=== PATIENT | male | born 1995 | race Caucasian/White ===

== ENCOUNTER 2018-05-05 07:39 | Outpatient (CLI) | payer MEDICARE, MEDICAID, SELFPAY ==
[2018-05-05 08:28] LABS: Abs Immature Grans 0.01 k/cumm (0.0-0.09); Absolute Basophil Count 0.03 k/cumm (0.0-0.2); Absolute Eosinophil Count 0.21 k/cumm (0.0-0.7); Absolute Lymphocyte Count 1.46 k/cumm (1.2-3.4); Absolute Monocyte Count 0.54 k/cumm (0.11-0.7); Basophils % 0.5; Eosinophils % 3.4; HGB 16.3 g/dL (13.5-17.5); Immature Grans % 0.2; Lymphocytes % 23.7; Mean Corp. HGB Concentration 33.3 g/dL (32.0-36.0); Mean Corpuscular Hemoglobin 30.4 pg (27.0-33.0); Mean Corpuscular Volume 91.4 fL (80-95); Mean Platelet Volume 11.1 fL (8.0-11.0); Monocytes % 8.8; Neutrophils % 63.4; Platelet Count 171 x1000/uL (130-400); RBC 5.36 m/cumm (4.50-6.00); RBC Distribution Width 13.9 % (11.8-14.1); White Blood Cell Count 6.15 k/cumm (4.4-10.8)
[2018-05-05 08:40] LABS: Hemoglobin A1C 5.1 % (4.5-6.2)
[2018-05-05 08:59] LABS: Lithium 0.83 mmol/L (0.60-1.20)
[2018-05-05 09:11] LABS: ALT 46 U/L (12-78); AST 23 U/L (15-37); Albumin 4.2 g/dL (3.4-5.0); Alkaline Phosphatase 67 U/L (46-116); Anion Gap 7.3 mmol/L (3-11); BUN 12 mg/dL (7-18); Bilirubin, Total 0.7 mg/dL (0.2-1.0); CO2 27.7 mmol/L (21.0-32.0); CREATININE 1.22 mg/dL (0.70-1.30); Calcium 9.5 mg/dL (8.5-10.1); Chloride 105 mmol/L (98-107); Cholesterol 145 mg/dL (50-200); Glucose 96 mg/dL (70-100); HDL Cholesterol 32 mg/dL (40-60); LDL CHOLESTEROL 88 mg/dL (<100); Potassium 4.3 mmol/L (3.5-5.1); Sodium 140 mmol/L (136-145); TSH 0.67 uIU/mL (0.358-3.74); Total Protein 6.9 g/dL (6.4-8.2); Triglyceride 188 mg/dL (30-150)
== END 2018-05-05 07:59 ==
PROVIDERS: PCP Specialist/Technologist Athletic Trainer; Visit Provider Nurse Practitioner Psychiatric/Mental Health
DX: F31.76 Bipolar disorder, in full remission, most recent episode depressed (principal); Z51.81 Encounter for therapeutic drug level monitoring; Z79.899 Other long term (current) drug therapy
CPT/HCPCS: 80053; 80061; 83721; 80178; 83036; 84443; 85025

== ENCOUNTER 2018-08-19 10:19 | Outpatient (CLI) | payer MEDICARE, MEDICAID, SELFPAY ==
[2018-08-19 11:53] LABS: ALT 51 U/L (12-78); AST 27 U/L (15-37); Albumin 4.2 g/dL (3.4-5.0); Alkaline Phosphatase 69 U/L (46-116); Anion Gap 10.2 mmol/L (3-11); BUN 15 mg/dL (7-18); Bilirubin, Total 0.4 mg/dL (0.2-1.0); CO2 23.8 mmol/L (21.0-32.0); CREATININE 0.99 mg/dL (0.70-1.30); Calcium 9.6 mg/dL (8.5-10.1); Chloride 103 mmol/L (98-107); Glucose 92 mg/dL (70-100); Potassium 3.8 mmol/L (3.5-5.1); Sodium 137 mmol/L (136-145); Total Protein 7.2 g/dL (6.4-8.2)
[2018-08-19 13:00] LABS: Lithium 0.47 mmol/L (0.60-1.20)
== END 2018-08-19 10:39 ==
PROVIDERS: PCP Specialist/Technologist Athletic Trainer; Visit Provider Nurse Practitioner Psychiatric/Mental Health
DX: F31.76 Bipolar disorder, in full remission, most recent episode depressed (principal); Z51.81 Encounter for therapeutic drug level monitoring; Z79.899 Other long term (current) drug therapy
CPT/HCPCS: 36415; 80053; 80178

== ENCOUNTER 2018-11-03 13:09 | Outpatient (REF) | payer MEDICARE, MEDICAID, SELFPAY | END 2018-11-03 13:29 | LOC: NCHCN 13:09 | PROVIDERS: PCP Specialist/Technologist Athletic Trainer; Visit Provider Nurse Practitioner Family | DX: R09.81 Nasal congestion (principal); R05 Cough; J02.9 Acute pharyngitis, unspecified | CPT/HCPCS: 87070 ==

== ENCOUNTER 2018-11-04 10:36 | Outpatient (CLI) | payer MEDICARE, MEDICAID, SELFPAY | END 2018-11-04 10:56 | PROVIDERS: PCP Specialist/Technologist Athletic Trainer; Visit Provider Nurse Practitioner Psychiatric/Mental Health | DX: F31.76 Bipolar disorder, in full remission, most recent episode depressed (principal); Z51.81 Encounter for therapeutic drug level monitoring | CPT/HCPCS: 36415; 80178 ==

== ENCOUNTER 2019-03-06 09:29 | Outpatient (CLI) | payer MEDICARE, MEDICAID, SELFPAY ==
[2019-03-06 11:38] LABS: ALT 37 U/L (16-63); AST 22 U/L (15-37); Alkaline Phosphatase 66 U/L (46-116); Anion Gap 13.2 mmol/L (3-11); BUN 15 mg/dL (7-18); Bilirubin, Total 0.6 mg/dL (0.2-1.0); CO2 22.8 mmol/L (21.0-32.0); CREATININE 1.07 mg/dL (0.70-1.30); Calcium 9.3 mg/dL (8.5-10.1); Chloride 105 mmol/L (98-107); Glucose 94 mg/dL (70-100); Potassium 4.4 mmol/L (3.5-5.1); Sodium 141 mmol/L (136-145)
[2019-03-06 11:39] LABS: Lithium 0.42 mmol/L (0.60-1.20)
== END 2019-03-06 09:49 ==
PROVIDERS: PCP Specialist/Technologist Athletic Trainer; Visit Provider Nurse Practitioner Psychiatric/Mental Health
DX: F31.76 Bipolar disorder, in full remission, most recent episode depressed (principal); Z51.81 Encounter for therapeutic drug level monitoring; Z79.899 Other long term (current) drug therapy
CPT/HCPCS: 36415; 80053; 80178

== ENCOUNTER 2019-04-22 13:58 | Outpatient (REF) | payer MEDICARE, MEDICAID, SELFPAY ==
[2019-04-22 18:35] LABS: Calculated LDL 74 mg/dL; Cholesterol 144 mg/dL (<200); HDL Cholesterol 33 mg/dL (40-60); Triglyceride 185 mg/dL (<150)
== END 2019-04-22 14:18 ==
LOC: NCHCN 13:58
PROVIDERS: PCP Specialist/Technologist Athletic Trainer; Visit Provider Specialist/Technologist Athletic Trainer
DX: F17.200 Nicotine dependence, unspecified, uncomplicated (principal); E66.9 Obesity, unspecified
CPT/HCPCS: 80061

== ENCOUNTER 2019-07-30 01:18 | Emergency (ER) | payer MEDICARE, MEDICAID, SELFPAY ==
[2019-07-30 01:18] VITALS: BP 135/83; PULSE 98; RESP 16; TEMP 36.5; O2SAT 94
--- NOTE | 2019-07-30 01:25 | ED.GENADUL_ITS ---
Discharge Plan Disposition Patient Disposition: HOME Condition: Stable Discharge Details Chief Complaint: Orthopedic Clinical Impression: Left knee sprain Primary Care Provider: Bryon Simon ED Provider: Robbie Becerra Home Meds and New Rx's Prescriptions: Continued lithium carbonate 450 MG tablet extended release 300 mg PO HS RF: 0 lithium carbonate 450 MG tablet extended release 900 mg PO QAM RF: 0 Fanapt 4 MG tablet 10 mg PO BID RF: 0 trazodone 50 MG tablet 100 mg PO HS RF: 0 melatonin 3 MG tablet 3 mg PO HS PRN PRNRF: 0 Discharge Instructions Instructions: Knee Sprain (ED) Additional Instructions: if pain continues in one week follow up with your primary care provider if you have pain take 1000mg tylenol and 600mg ibuprofen every 6 hours as needed Medical Decision Making 24 yo male who states he has history of prior patella dislocations was dancing when he felt a pop in his left knee and called 911. He was given IM fentanyl with EMS and now feels better. Localizes the pain to the anterior knee with no visible or palpable deformity, no swelling, patella does seem in place and has normal distal sensation and pulses. Suspect knee sprain but could have had a patella dislocation that self reduced. Will xray to eval for possible fx but unlikely given exam findings no acute findings on xray. Stable exam. Will d/c with crutches and knee brace and advised to f/u with pcp, likely knee sprain. return precautions given Differential Diagnosis Differential Diagnosis: patella dislocation, strian, sprain Medical Records Medical records reviewed: Yes I reviewed the patient's medical records. Imaging Data Radiologic Study: Attestation: I personally reviewed and interpreted this imaging study as follows: Imaging: X-Ray My impression: no acute findings HPI General Mode of arrival: EMS . Date/Time Provider Initiated Documentation: 07/30/19 01:23 . Limitations to Documentation: no limitations . Information obtained by: patient . History of Present Illness 24 year old M presents to the emergency department with the chief complaint of left knee pain, described as moderate, Patient started experiencing this hour(s) (1) and it has been constant. No relieving factors improve symptom(s), No exacerbating factors reported . Patient notes no other symptoms.. Related Data Home Medications Medication Instructions Recorded Confirmed lithium carbonate 300 mg PO HS 09/09/12 07/30/19 Fanapt 10 mg PO BID 01/28/13 07/30/19 lithium carbonate 900 mg PO QAM 01/28/13 10/24/16 trazodone 100 mg PO HS 11/22/15 07/30/19 melatonin 3 mg PO HS PRN PRN 12/09/15 07/30/19 Allergies Allergy/AdvReac Type Severity Reaction Status Date / Time No Known Allergies Allergy Unverified 12/22/16 13:17 General Stated Complaint: Orthopedic DARRYL: 4 Review of Systems All systems reviewed & are unremarkable except as noted in HPI and below Constitutional Constitutional: Denies chills, Denies fever(s) and Denies weakness Cardiovascular Cardiovascular: Denies chest pain and Denies dyspnea Respiratory Respiratory: Denies cough and Denies dyspnea Gastrointestinal Gastrointestinal: Denies abdominal pain, Denies nausea and Denies vomiting Musculoskeletal Musculoskeletal: Denies joint swelling Neurologic Neurologic: Denies weakness PFSH Social History Smoking/Tobacco Use Status: Current every day Tobacco Type: cigarettes Alcohol Intake: current Alcohol Intake frequency: a few times a week Alcohol type: beer Drug use: Occasionally Substance use type: marijuana Do you feel safe at home: Yes Do you feel safe in your relationship?: Yes Exam Const General: no acute distress Orientation: alert HENMT Head: normal to inspection Ears: external ears normal General nose exam: external nose normal Mouth: moist mucous membranes Eyes General: appearance normal, both eyes and all related structures Neck Neck: normal visual inspection Resp Effort & Inspection: normal respiratory effort and able to speak in complete sentences Cardio Rate: regular rate Skin General skin exam: no rashes or lesions noted Neuro General: alert and oriented x3 Extrem General: normal to inspection Psych Mental Status: mental status grossly normal Course Vital Signs Vital signs: Vital Signs Temperature 36.5 C 07/30/19 01:18 Pulse 98 H 07/30/19 01:18 Respiratory Rate 16 07/30/19 01:18 Blood Pressure 135/83 07/30/19 01:18 Pulse Oximetry 94 L 07/30/19 01:18 Temperature 36.5 C 07/30/19 01:18 Temperature Source Skin 07/30/19 01:18 Pulse 98 H 07/30/19 01:18 Respiratory Rate 16 07/30/19 01:18 Blood Pressure 135/83 07/30/19 01:18 Blood Pressure Position Sitting 07/30/19 01:18 Pulse Oximetry 94 L 07/30/19 01:18 Oxygen Delivery Method Room Air 07/30/19 01:18 Oxygen Flow Rate 0 07/30/19 01:18 Pain Level 5 07/30/19 01:18
--- NOTE | 2019-07-30 01:33 | DI.RAD_ITS ---
EXAM: XR KNEE LT 3V AP,LAT,RADHA CLINICAL HISTORY: pain s/p fall. TECHNIQUE: 2D digital imaging was performed. FINDINGS: BONES: No acute fracture is present. No bony destructive lesion is seen. JOINTS: The knee is normally aligned. No joint effusion is seen. SOFT TISSUE: Normal. IMPRESSION: Normal radiographs of the left knee. DATA REPOSITORY: RADIATION DOSE DELIVERED:
--- NOTE | 2019-07-30 01:52 | DI.VRAD_ITS ---
PROCEDURE INFORMATION: Exam: XR Left Knee Exam date and time: 07/30/2019 1:34 AM Age: 24 years old Clinical indication: Injury or trauma; Injury history: Twisting injury, ? dislocation; Initial encounter; Sprain or strain; Patella or knee; Left TECHNIQUE: Imaging protocol: XR Left knee. Views: 3 views. COMPARISON: No relevant prior studies available. FINDINGS: Bones/joints: No suspicious osseous lytic or blastic lesion. No discrete or displaced fracture. No joint dislocation. No significant joint effusion. Soft tissues: Normal. IMPRESSION: No acute findings. Dictated and Authenticated by: Tono Pearce MD. Ordering:MEGAN Avalos MD
== END 2019-07-30 02:30 | disposition home or self-care (01) ==
LOC: ER 02:39
PROVIDERS: Emergency Provider Emergency Medicine; PCP Specialist/Technologist Athletic Trainer
DX: S83.8X2A Sprain of other specified parts of left knee, initial encounter (principal); X50.9XXA Other and unspecified overexertion or strenuous movements or postures, initial encounter
CPT/HCPCS: 73562; 99284; 99283; E0114; L1810

== ENCOUNTER 2019-11-25 12:04 | Emergency (ER) | payer MEDICARE, MEDICAID, SELFPAY ==
[2019-11-25] VITALS (31 sets, daily range): BP systolic 109–132; BP diastolic 67–107; PULSE 58–95; RESP 14–25; TEMP 36.8; O2SAT 93–97
--- NOTE | 2019-11-25 12:20 | ED.GENADUL_ITS ---
Discharge Plan Disposition Patient Disposition: HOME Condition: Improving Discharge Details Chief Complaint: RespSymp Clinical Impression: Acute bronchitis Primary Care Provider: Nathaly Pace ED Provider: Tom Beavers Home Meds and New Rx's Prescriptions: New doxycycline hyclate 100 mg capsule 100 mg PO BID 10 Days Qty: 20 RF: 0 Continued lithium carbonate 450 MG tablet extended release 300 mg PO HS RF: 0 Fanapt 4 MG tablet 10 mg PO BID RF: 0 trazodone 50 MG tablet 100 mg PO HS RF: 0 melatonin 3 MG tablet 3 mg PO HS PRN RF: 0 Discharge Instructions Instructions: Acute Bronchitis (ED) Additional Instructions: Your yu/COVID test is pending. Please continue your vigilance regarding wearing a mask and social distancing. Take antibiotics as prescribed. Home to rest today. Continue your regular medications Return for any acute concerns. Stand Alone Forms: PENDING COVID-19 TESTING Medical Decision Making 24-year-old male presents from home with 1 day of cough, subjective fever, production of sputum, general malaise. He had a low-grade temperature on route, afebrile on arrival. Differential diagnosis includes viral syndrome, bronchitis, pneumonia. Patient underwent COVID-19 screening which is pending, screening laboratories, chest x- ray and was given Tylenol and parenteral fluids. Pulse corrected nicely to 60, patient felt significantly improved. Chest x-ray was unremarkable. Laboratories reassuring. He does have productive cough and I will treat him for bronchitis while COVID test is pending. HPI General Mode of arrival: EMS . Date/Time Provider Initiated Documentation: 11/25/19 12:13 . Limitations to Documentation: no limitations . Information obtained by: patient and EMS . History of Present Illness 24 year old M presents to the emergency department with the chief complaint of Cough and subjective fever x24 hours, described as moderate, Quality is described as dull and constant, and is localized to the chest. Patient reports no radiation. Patient started experiencing this hour(s) and it has been constant. No relieving factors improve symptom(s), No exacerbating factors reported . Patient notes malaise; denies shortness of breath. Patient did receive the following treatments prior to arrival, none Related Data Home Medications Medication Instructions Recorded Confirmed lithium carbonate 300 mg PO HS 09/09/12 11/25/19 Fanapt 10 mg PO BID 01/28/13 11/25/19 trazodone 100 mg PO HS 11/22/15 11/25/19 melatonin 3 mg PO HS PRN 12/09/15 11/25/19 doxycycline hyclate 100 mg PO BID 10 Days #20 cap 11/25/19 Previous Rx's Medication Instructions Recorded doxycycline hyclate 100 mg PO BID 10 Days #20 cap 11/25/19 Allergies Allergy/AdvReac Type Severity Reaction Status Date / Time No Known Allergies Allergy Unverified 11/25/19 12:22 General Stated Complaint: RespSymp DARRYL: 2 Review of Systems Narrative: Cough with production of sputum. No change to taste or smell. No shortness of breath. Feels malaise and weakness. No known sick contacts or travel. 8 systems reviewed and otherwise negative COUNTS INCLUDE 234 BEDS AT THE [facility] Social History Smoking/Tobacco Use Status: Current every day Tobacco Type: cigarettes Alcohol Intake: current Alcohol Intake frequency: a few times a week Alcohol type: beer Drug use: Occasionally Substance use type: marijuana Do you feel safe at home: Yes Do you feel safe in your relationship?: Yes Exam Narrative Exam Narrative: GEN: awake, alert, oriented 3. Pleasant, well groomed, interactive. HEAD: Normocephalic, atraumatic ENT: Mucous membranes moist, oropharynx unremarkable, External ear exam unremarkable EYES: PERRL, EOMI NECK: Full ROM, no JULIANE, no menigismus CHEST/RESP: Nontender, clear to auscultation bilateral, right upper lung with rhonchi anterior CARDIOVASCULAR: Borderline tachycardia, RRR, no murmur, rub ayaz. 2+ Rad pulse bilateral ABDOMEN: Soft, nontender, no mass. +Bowel sounds EXT: Full ROM, no edema, no rash Neuro: Grossly normal neurologic exam, conversant, interactive. Psych: Speech fluent, thoughts congruent, affect normal Course Vital Signs Vital signs: Vital Signs Temperature 36.8 C 11/25/19 12:06 Pulse 83 11/25/19 12:06 Respiratory Rate 19 11/25/19 12:06 Blood Pressure 131/107 H 11/25/19 12:06 Pulse Oximetry 94 L 11/25/19 12:06 Temperature 36.8 C 11/25/19 12:06 Temperature Source Skin 11/25/19 12:06 Pulse 83 11/25/19 12:06 Respiratory Rate 19 11/25/19 12:06 Respiratory Effort Incrsd Work of Breathing 11/25/19 12:14 Respiratory Depth Normal 11/25/19 12:12 Blood Pressure 131/107 H 11/25/19 12:06 Blood Pressure Position Sitting 11/25/19 12:06 Pulse Oximetry 94 L 11/25/19 12:06 Oxygen Delivery Method Room Air 11/25/19 12:06 Oxygen Flow Rate 0 11/25/19 12:06 Pain Level 2 11/25/19 12:06
[2019-11-25] MEDS: Normal Saline 1,000 ML 1000 ML IV ×2 (12:27→14:11)
[2019-11-25] MEDS: Acetaminophen 500 MG TAB 1000 MG PO (12:29)
[2019-11-25 12:36] LABS: Abs Immature Grans 0.02 k/cumm (0.0-0.09); Absolute Basophil Count 0.03 k/cumm (0.0-0.2); Absolute Eosinophil Count 0.44 k/cumm (0.0-0.7); Absolute Lymphocyte Count 1.43 k/cumm (1.2-3.4); Absolute Monocyte Count 1.15 k/cumm (0.11-0.7); Absolute Neutrophil Count 8.43 k/cumm (1.2-6.7); Basophils % 0.3; Eosinophils % 3.8; HCT 50.3 % (40.0-50.0); HGB 17.2 g/dL (13.5-17.5); Immature Grans % 0.2 %; Lymphocytes % 12.4; Mean Corp. HGB Concentration 34.2 g/dL (32.0-36.0); Mean Corpuscular Hemoglobin 30.4 pg (27.0-33.0); Mean Platelet Volume 10.4 fL (8.0-11.0); Neutrophils % 73.3; Platelet Count 206 x1000/uL (130-400); RBC 5.65 m/cumm (4.50-6.00); RBC Distribution Width 13.1 % (11.8-14.1)
[2019-11-25 12:49] LABS: ALT 41 U/L (16-63); AST 16 U/L (15-37); Alkaline Phosphatase 90 U/L (46-116); Anion Gap 12.6 mmol/L (3-11); BUN 15 mg/dL (7-18); Bilirubin, Total 0.8 mg/dL (0.2-1.0); CO2 23.4 mmol/L (21.0-32.0); CREATININE 1.12 mg/dL (0.70-1.30); Calcium 9.4 mg/dL (8.5-10.1); Chloride 102 mmol/L (98-107); Glucose 117 mg/dL (74-106); Potassium 3.9 mmol/L (3.5-5.1); Sodium 138 mmol/L (136-145)
--- NOTE | 2019-11-25 12:54 | DI.RAD_ITS ---
EXAM: XR PORTABLE CHEST AP CLINICAL HISTORY: PUI; fever, cough TECHNIQUE: 2D digital imaging was performed. COMPARISON: No exams were available for comparison FINDINGS: MEDIASTINUM: Normal. HEART: Normal. PULMONARY VASCULATURE: Normal. LUNGS: Clear. PLEURAL SPACE: No pleural effusion or pneumothorax. BONE:Normal. OTHER FINDINGS:Normal. IMPRESSION: No acute pulmonary findings. DATA REPOSITORY: RADIATION DOSE DELIVERED:
--- NOTE | 2019-11-25 13:29 | DI.VRAD_ITS ---
PROCEDURE INFORMATION: Exam: XR Chest, 1 View Exam date and time: 11/25/2019 12:54 PM Age: 24 years old Clinical indication: Cough and fever; Patient HX: Cough, fever TECHNIQUE: Imaging protocol: XR of the chest Views: 1 view. COMPARISON: No relevant prior studies available. FINDINGS: Lungs: Unremarkable. No consolidation. Pleural space: Unremarkable. No pleural effusion. No pneumothorax. Heart/Mediastinum: Unremarkable. No cardiomegaly. Bones/joints: Unremarkable. IMPRESSION: No acute findings. Dictated and Authenticated by: Cholo Chowdhury MD. Ordering:ИВАН Santos MD
[2019-11-25] MEDS: Doxycycline Hyclate 100 MG CAP PO (15:27)
[2019-11-25 23:07] LABS: COVID-19 RT-PCR UVMMC Result Negative (Negative)
--- NOTE | 2019-11-27 11:00 | NUR.NOTE ---
Contacted patient to discuss negative COVID test. This nurse attempted to call patient yesterday 11/26/2019 and left voicemail for patient to call back. Called patient today to communicate negative results. Patient agreeable to contacting PCP for follow up and states he will return to ED for worsening symptoms. Patient states he is starting to feel better at this time. Nursing Note:
== END 2019-11-25 15:37 | disposition home or self-care (01) ==
PROVIDERS: Emergency Provider Emergency Medicine; PCP Nurse Practitioner Family
DX: J20.8 Acute bronchitis due to other specified organisms (principal); R50.9 Fever, unspecified; F17.210 Nicotine dependence, cigarettes, uncomplicated
CPT/HCPCS: 36415; 80053; 96360; 96361; 99284; U0003; 71045; 85025

== ENCOUNTER 2020-02-02 03:09 | Outpatient (CLI) | payer MEDICARE, MEDICAID, SELFPAY ==
[2020-02-02 11:09] LABS: HCT 44.9 % (40.0-50.0); HGB 15.1 g/dL (13.5-17.5); MCH 30.4 pg (27.0-33.0); MCHC 33.6 % (32.0-36.0); MCV 90.3 fL (80-95); MPV 10.8 fL (8.0-11.0); Platelet Count 199 10^3/uL (130-400); RBC 4.97 10^6/uL (4.36-5.78); RDW 12.6 % (11.8-14.1); RDW-SD 41.2 fL; WBC 9.03 10^3/uL (4.4-10.8)
[2020-02-02 12:09] LABS: ALT 38 U/L (16-63); AST 15 U/L (15-37); Albumin 3.9 g/dL (3.4-5.0); Alkaline Phosphatase 86 U/L (46-116); Anion Gap 6.3 mmol/L (3-11); BUN 23 mg/dL (7-18); Bilirubin, Total 0.4 mg/dL (0.2-1.0); CO2 25.7 mmol/L (21.0-32.0); CREATININE 1.17 mg/dL (0.70-1.30); Chloride 102 mmol/L (98-107); Glucose 102 mg/dL (74-106); Potassium 4.1 mmol/L (3.5-5.1); Sodium 134 mmol/L (136-145); TSH (W/Ref FT4) 1.01 uIU/mL (0.36-3.74); Total Protein 6.7 g/dL (6.4-8.2)
== END 2020-02-02 03:29 ==
PROVIDERS: PCP Nurse Practitioner Family; Visit Provider Nurse Practitioner Family
DX: F31.76 Bipolar disorder, in full remission, most recent episode depressed (principal); Z51.81 Encounter for therapeutic drug level monitoring; Z79.899 Other long term (current) drug therapy
CPT/HCPCS: 36415; 80053; 85027; 80178; 84443

== ENCOUNTER 2020-12-09 10:14 | Emergency (ER) | payer MEDICARE, MEDICAID, SELFPAY ==
[2020-12-09 10:21] VITALS: BP 136/77; PULSE 58; RESP 20; TEMP 36.3; O2SAT 99
--- NOTE | 2020-12-09 10:29 | ED.GENADUL_ITS ---
Discharge Plan Disposition Patient Disposition: HOME Condition: Stable Discharge Details Clinical Impression: Stress at home Primary Care Provider: Nathaly Pace ED Provider: Nery Nick Home Meds and New Rx's Prescriptions: Continued lithium carbonate 450 MG tablet extended release 300 mg PO HS RF: 0 Fanapt 4 MG tablet 10 mg PO BID RF: 0 trazodone 50 MG tablet 100 mg PO HS RF: 0 melatonin 3 MG tablet 3 mg PO HS PRN RF: 0 No Action lamotrigine 200 mg tablet 200 mg PO DAILY RF: 0 propranolol 40 mg tablet 40 mg PO DAILY RF: 0 Discharge Instructions Instructions: Stress (ED) Additional Instructions: Mental health evaluation was reassuring here today. I would like for you to follow-up with them again in the next week for reevaluation. Please discuss more coping mechanisms with them regarding your stressful living situation. Please continue to speak with friends about your stress and concerns. If you develop thoughts of self harm, thoughts of harming others or other new/worsening symptoms please seek care urgently once again. Referrals: Nathaly Pace [Primary Care Provider] - Discharge Data Discharge Date/Time-TO BE ENTERED AT DEPARTURE: 12/09/20 14:36 Medical Decision Making Patient is a pleasant 25 year old male, brought in by EMS, requesting e valuation. Patient reports that he has PMH of tremor, anxiety, bipolar, PTSD, schizophrenic tendencies. He denies SI or HI. Denies any hallucinations. Denies ETOH or drug use. Reports that he is here out of frustration of his living situation and that no one will listen to him. He states that he has many ideas that those he lives with does not want to listen too. These ideas primarily focus on fixing the problems of the world. He would like more available MH and way to get people to understand each others problems. On exam, patient appears nontoxic. He demonstrates fair personal insight. No flight of ideas. He does seem fixated on wanting to improve the current state of things, in particular COVID, and stress associated with this. He has no plans to harm himself or others. Patient recently released from senior care after 1 month incarcerated. Reports that [facility] as he needs to live with a, responsible adult. As patient does not express thoughts of self harm, or thoughts of harming others, I do not feel that CPSO is warranted at this time. Reached out to , patient is a [employer] [facility] client. [facility] will be contacted and call us back. Alyssa with [employer] [facility] evaluated the patient. She feels that patient is at his baseline. She agrees that patient is not a risk to himself or others. She feels that he is safe for discharge and does not require inpatient admission. Reevaluated cindy. He is eating lunch, resting comfortably. He agrees with MH. Reiterates that he is not a risk to himself or others, no SI or HI. He reports that he does not want to go back to his sister's house because of drama. Does not feel that this is a good place to live. However, not lving there is a breach of his parole per patient report. He has requested that I call local PD to discuss. He reports he would like to, turn myself in, for his parole violation rather than return to his current living situation. He is hoping that ultimately the legal system will help arrange for different living situation. [employer] spoke with patient in the department. They seemed to have a good exchange. Jasmin agrees to go home tonight with plan to separate himself from the stressful individuals and chill tonight. He seems comfortable with this. Patient's case reviewer with [employer] [facility] will call tomorrow to schedule f/u. Advised close f/u with PCP. We discussed stress reduction techniques. Return precautions were discussed, in particular thoughts of self harm, SI or HI. All of his questions and concerns were addressed, he is in agreement with this plan. HPI General Mode of arrival: EMS . Date/Time Provider Initiated Documentation: 12/09/20 10:29 . Limitations to Documentation: no limitations . Information obtained by: patient, EMS and RN notes reviewed . History of Present Illness 25 year old M presents to the emergency department with the chief complaint of would like MH evaluation, described as mild (denies any acute change, no SI or HI, wants someone to talk to), Patient started experiencing this hour(s) and it has been constant. No relieving factors improve symptom(s), No exacerbating factors reported . Patient notes no other symptoms.. Patient did receive the following treatments prior to arrival, none Related Data Home Medications Medication Instructions Recorded Confirmed lithium carbonate 300 mg PO HS 09/09/12 12/09/20 Fanapt 10 mg PO BID 01/28/13 12/09/20 trazodone 100 mg PO HS 11/22/15 12/09/20 melatonin 3 mg PO HS PRN 12/09/15 12/09/20 lamotrigine 200 mg PO DAILY 12/09/20 12/09/20 propranolol 40 mg PO DAILY 12/09/20 12/09/20 Allergies Allergy/AdvReac Type Severity Reaction Status Date / Time No Known Allergies Allergy Unverified 12/09/20 10:37 General Stated Complaint: PsychEval DARRYL: 2 Review of Systems Constitutional Constitutional: Reports as per HPI, Denies chills, Denies fatigue, Denies fever(s), Denies headache(s) and Denies weakness Eyes Eyes: Denies change in vision ENT Ears, Nose, Mouth, and Throat: Denies headache(s) Cardiovascular Cardiovascular: Reports as per HPI, Denies chest pain, Denies lightheadedness, Denies dyspnea and Denies dyspnea on exertion Respiratory Respiratory: Reports as per HPI, Denies cough, Denies dyspnea and Denies dyspnea on exertion Gastrointestinal Gastrointestinal: Reports as per HPI, Denies abdominal pain, Denies change in bowel habits, Denies nausea and Denies vomiting Genitourinary Genitourinary: Denies system reviewed and no additional complaints, except as documented (denies any change in urinary habits) Musculoskeletal Musculoskeletal: Denies abnormal gait Integumentary/Breasts Skin/Breast: Reports as per HPI and Denies rash Neurologic Neurologic: Denies abnormal movements, Denies abnormal speech, Denies abnormal gait, Denies headache(s), Denies paresthesias and Denies weakness Endocrine Endocrine: Denies fatigue [facility] Social History Smoking/Tobacco Use Status: Current every day Tobacco Type: cigarettes Smoking risk assessment performed?: Yes Alcohol Intake: current Alcohol Intake frequency: a few times a week Alcohol type: beer Drug use: Occasionally Substance use type: marijuana Do you feel safe at home: Yes Do you feel safe in your relationship?: Yes Exam Const General: cooperative, healthy appearing, comfortable, no acute distress, well developed and well groomed Nutritional Appearance: well nourished and obese Orientation: alert and awake Eyes General: appearance normal, both eyes and all related structures Resp Effort & Inspection: normal respiratory effort, able to speak in complete sentences and no respiratory distress Auscultation: clear to auscultation bilaterally, no rales, no rhonchi and no wheezes Cardio Rate: regular rate Rhythm: regular rhythm Heart Sounds: S1 normal and S2 normal Skin General skin exam: no rashes or lesions noted Trauma: no lacerations or abrasions Neuro General: patient alert and patient awake Cognition: normal cognition Speech: speech normal Gait: normal gait Motor: tremor (bilateral upper extremities) Psych Appearance: grossly normal and well kempt Mental Status: mental status grossly normal Speech and Movement: speech and movement normal Mood: congruent mood Affect: normal affect Attitude: cooperative Thought Process: normal Thought Content: no homicidality, obsessions and suicidality Insight: fair Judgment: fair Course Vital Signs Vital signs: Vital Signs Temperature 36.3 C L 12/09/20 10:21 Pulse 58 L 12/09/20 10:21 Respiratory Rate 20 12/09/20 10:21 Blood Pressure 136/77 12/09/20 10:21 Pulse Oximetry 99 12/09/20 10:21 Temperature 36.3 C L 12/09/20 10:21 Temperature Source Skin 12/09/20 10:21 Pulse 58 L 12/09/20 10:21 Respiratory Rate 20 12/09/20 10:21 Blood Pressure 136/77 12/09/20 10:21 Blood Pressure Position Sitting 12/09/20 10:21 Pulse Oximetry 99 12/09/20 10:21 Oxygen Delivery Method Room Air 12/09/20 10:21 Oxygen Flow Rate 0 12/09/20 10:21 Pain Level 3 12/09/20 10:21
--- NOTE | 2020-12-09 12:31 | PDOC.MHCN ---
Date of service: 12/09/20 Time of Service: 11:05 Mental Health Crisis Note Presenting Issue How did you arrive at the ED and why did you come: Ct arrived via ambulance due to fear of getting in a fight with friends he is living with and thus violating his parole Precipitating Factors Client denied current SI or HI Disposition BEHAVIOR: Cooperative, excessive hand movements while speaking EYE CONTACT: Normal range MOOD: Client reported his mood was good AFFECT: Euthymic APPETITE: Client did not report an appetite disturbance SLEEP(trouble falling/staying asleep: Client did not report a sleep disturbance Plan Client will be discharged due to lack of presence of mental health crisis Signature Clinician's Name/Title: Alyssa Thorne [employer] Supervisor
== END 2020-12-09 14:36 | disposition home or self-care (01) ==
LOC: ER 12:10
PROVIDERS: Emergency Provider Physician Assistant; PCP Nurse Practitioner Family
DX: R45.89 Other symptoms and signs involving emotional state (principal)
CPT/HCPCS: 99283

== ENCOUNTER 2023-01-01 16:44 | Outpatient (CLI) | payer MEDICARE, MEDICAID, SELFPAY ==
[2023-01-01 16:04] LABS: Abs Immature Grans 0.05 10^3/uL (0.0-0.06); Absolute Basophil Count 0.05 10^3/uL (0.0-0.2); Absolute Eosinophil Count 0.14 10^3/uL (0.0-0.7); Absolute Lymphocyte Count 1.94 10^3/uL (1.2-3.4); Absolute Monocyte Count 0.82 10^3/uL (0.1-0.8); Basophils % 0.7; Eosinophils % 1.9; HCT 43.6 % (40.0-50.0); HGB 15.1 g/dL (13.5-17.5); Immature Grans % 0.7; Lymphocytes % 26.6; MCH 31.1 pg (27.0-33.0); MCHC 34.6 % (32.0-36.0); MCV 90 fL (80-95); MPV 11.4 fL (8.0-11.0); Monocytes % 11.2; Neutrophils % 58.9; Platelet Count 204 10^3/uL (130-400); RBC 4.85 10^6/uL (4.36-5.78); RDW 12.6 % (11.8-14.1); RDW-SD 41.5 fL
== END 2023-01-01 16:45 | disposition home or self-care (01) ==
LOC: LBO 16:45
PROVIDERS: PCP Nurse Practitioner Family; Visit Provider Registered Nurse
DX: F32.9 Major depressive disorder, single episode, unspecified (principal); Z79.899 Other long term (current) drug therapy
CPT/HCPCS: 36415; 85025

== ENCOUNTER 2023-02-03 10:41 | Outpatient (CLI) | payer MEDICARE, MEDICAID, SELFPAY ==
[2023-02-03 13:28] LABS: Abs Immature Grans 0.04 10^3/uL (0.0-0.06); Absolute Basophil Count 0.03 10^3/uL (0.0-0.2); Absolute Eosinophil Count 0.13 10^3/uL (0.0-0.7); Absolute Lymphocyte Count 2.28 10^3/uL (1.2-3.4); Absolute Monocyte Count 0.51 10^3/uL (0.1-0.8); Basophils % 0.5; Eosinophils % 2.2; HCT 44.5 % (40.0-50.0); HGB 15.5 g/dL (13.5-17.5); Immature Grans % 0.7; Lymphocytes % 39.4; MCH 31.4 pg (27.0-33.0); MCHC 34.8 % (32.0-36.0); MCV 90 fL (80-95); MPV 10.8 fL (8.0-11.0); Monocytes % 8.8; Neutrophils % 48.4; Platelet Count 148 10^3/uL (130-400); RBC 4.93 10^6/uL (4.36-5.78); RDW 12.7 % (11.8-14.1); WBC 5.79 10^3/uL (4.4-10.8)
== END 2023-02-03 10:42 | disposition home or self-care (01) ==
LOC: LBO 10:42
PROVIDERS: PCP Nurse Practitioner Family; Visit Provider Registered Nurse
DX: F32.9 Major depressive disorder, single episode, unspecified (principal); Z79.899 Other long term (current) drug therapy
CPT/HCPCS: 36415; 85025

== ENCOUNTER 2023-03-03 13:55 | Outpatient (CLI) | payer MEDICARE, MEDICAID, SELFPAY ==
[2023-03-03 14:14] LABS: Abs Immature Grans 0.06 10^3/uL (0.0-0.06); Absolute Basophil Count 0.04 10^3/uL (0.0-0.2); Absolute Eosinophil Count 0.11 10^3/uL (0.0-0.7); Absolute Lymphocyte Count 2.38 10^3/uL (1.2-3.4); Absolute Monocyte Count 0.66 10^3/uL (0.1-0.8); Absolute Neutrophil Count 3.53 10^3/uL (1.2-6.7); Basophils % 0.6; Eosinophils % 1.6; HCT 43.2 % (40.0-50.0); HGB 15.1 g/dL (13.5-17.5); Immature Grans % 0.9; Lymphocytes % 35.1; MCH 31.3 pg (27.0-33.0); MCV 90 fL (80-95); MPV 10.8 fL (8.0-11.0); Monocytes % 9.7; Neutrophils % 52.1; Platelet Count 188 10^3/uL (130-400); RBC 4.82 10^6/uL (4.36-5.78); RDW 12.9 % (11.8-14.1); RDW-SD 42.1 fL; WBC 6.78 10^3/uL (4.4-10.8)
== END 2023-03-03 13:56 | disposition home or self-care (01) ==
LOC: LBO 13:55
PROVIDERS: PCP Nurse Practitioner Family; Visit Provider Registered Nurse
DX: F32.9 Major depressive disorder, single episode, unspecified (principal)
CPT/HCPCS: 36415; 85025

== ENCOUNTER 2023-03-27 15:11 | Outpatient (CLI) | payer MEDICARE, MEDICAID, SELFPAY ==
[2023-03-27 13:44] LABS: Abs Immature Grans 0.04 10^3/uL (0.0-0.06); Absolute Basophil Count 0.03 10^3/uL (0.0-0.2); Absolute Lymphocyte Count 2.03 10^3/uL (1.2-3.4); Absolute Monocyte Count 0.74 10^3/uL (0.1-0.8); Absolute Neutrophil Count 3.72 10^3/uL (1.2-6.7); Basophils % 0.5; Eosinophils % 1.5; HCT 44.6 % (40.0-50.0); HGB 15.5 g/dL (13.5-17.5); Immature Grans % 0.6; Lymphocytes % 30.5; MCH 31.1 pg (27.0-33.0); MCHC 34.8 % (32.0-36.0); MCV 90 fL (80-95); MPV 10.8 fL (8.0-11.0); Monocytes % 11.1; Neutrophils % 55.8; Platelet Count 160 10^3/uL (130-400); RBC 4.98 10^6/uL (4.36-5.78); RDW-SD 42.4 fL; WBC 6.66 10^3/uL (4.4-10.8)
== END 2023-03-27 15:12 | disposition home or self-care (01) ==
LOC: LBO 15:16
PROVIDERS: PCP Nurse Practitioner Family; Visit Provider Registered Nurse
DX: F32.9 Major depressive disorder, single episode, unspecified (principal)
CPT/HCPCS: 36415; 85025

== ENCOUNTER 2023-04-23 14:34 | Outpatient (CLI) | payer MEDICARE, MEDICAID, SELFPAY ==
[2023-04-23 15:17] LABS: Abs Immature Grans 0.06 10^3/uL (0.0-0.06); Absolute Basophil Count 0.03 10^3/uL (0.0-0.2); Absolute Eosinophil Count 0.07 10^3/uL (0.0-0.7); Absolute Lymphocyte Count 0.79 10^3/uL (1.2-3.4); Absolute Monocyte Count 0.73 10^3/uL (0.1-0.8); Absolute Neutrophil Count 5.71 10^3/uL (1.2-6.7); Basophils % 0.4; Eosinophils % 0.9; HCT 45.9 % (40.0-50.0); HGB 15.7 g/dL (13.5-17.5); Immature Grans % 0.8; Lymphocytes % 10.7; MCH 31.4 pg (27.0-33.0); MCHC 34.2 % (32.0-36.0); MCV 92 fL (80-95); MPV 11.3 fL (8.0-11.0); Monocytes % 9.9; Neutrophils % 77.3; Platelet Count 160 10^3/uL (130-400); RDW 13.1 % (11.8-14.1); RDW-SD 44.2 fL; WBC 7.39 10^3/uL (4.4-10.8)
[2023-04-23 15:30] LABS: VALPROIC ACID 95.3 ug/mL
== END 2023-04-23 14:35 | disposition home or self-care (01) ==
LOC: LBO 14:35
PROVIDERS: PCP Nurse Practitioner Family; Visit Provider Registered Nurse
DX: F32.9 Major depressive disorder, single episode, unspecified (principal)
CPT/HCPCS: 36415; 80164; 85025

== ENCOUNTER 2023-05-22 13:24 | Outpatient (CLI) | payer MEDICARE, MEDICAID, SELFPAY ==
[2023-05-22 12:49] LABS: Abs Immature Grans 0.07 10^3/uL (0.0-0.06); Absolute Basophil Count 0.06 10^3/uL (0.0-0.2); Absolute Eosinophil Count 0.14 10^3/uL (0.0-0.7); Absolute Monocyte Count 0.94 10^3/uL (0.1-0.8); Basophils % 0.8; Eosinophils % 1.9; HCT 45.9 % (40.0-50.0); HGB 15.6 g/dL (13.5-17.5); Lymphocytes % 31.9; MCH 31.3 pg (27.0-33.0); MCV 92 fL (80-95); MPV 10.6 fL (8.0-11.0); Neutrophils % 51.4; Platelet Count 155 10^3/uL (130-400); RBC 4.98 10^6/uL (4.36-5.78); RDW 13.2 % (11.8-14.1); RDW-SD 44.9 fL; WBC 7.21 10^3/uL (4.4-10.8)
== END 2023-05-22 13:25 | disposition home or self-care (01) ==
LOC: LBO 13:24
PROVIDERS: PCP Nurse Practitioner Family; Visit Provider Registered Nurse
DX: F32.9 Major depressive disorder, single episode, unspecified (principal); Z79.899 Other long term (current) drug therapy
CPT/HCPCS: 36415; 85025

== ENCOUNTER 2023-06-18 13:41 | Outpatient (CLI) | payer MEDICARE, MEDICAID, SELFPAY ==
[2023-06-18 13:33] LABS: Abs Immature Grans 0.07 10^3/uL (0.0-0.06); Absolute Basophil Count 0.05 10^3/uL (0.0-0.2); Absolute Eosinophil Count 0.16 10^3/uL (0.0-0.7); Absolute Lymphocyte Count 2.65 10^3/uL (1.2-3.4); Absolute Monocyte Count 0.72 10^3/uL (0.1-0.8); Absolute Neutrophil Count 3.99 10^3/uL (1.2-6.7); Basophils % 0.7; Eosinophils % 2.1; HCT 45.1 % (40.0-50.0); HGB 15.4 g/dL (13.5-17.5); Immature Grans % 0.9; Lymphocytes % 34.7; MCHC 34.1 % (32.0-36.0); MCV 91 fL (80-95); MPV 10.6 fL (8.0-11.0); Monocytes % 9.4; Neutrophils % 52.2; Platelet Count 168 10^3/uL (130-400); RBC 4.97 10^6/uL (4.36-5.78); RDW 12.9 % (11.8-14.1); RDW-SD 42.5 fL; WBC 7.64 10^3/uL (4.4-10.8)
== END 2023-06-18 13:42 | disposition home or self-care (01) ==
LOC: LBO 13:42
PROVIDERS: PCP Nurse Practitioner Family; Visit Provider Registered Nurse
DX: F32.9 Major depressive disorder, single episode, unspecified (principal)
CPT/HCPCS: 36415; 85025

== ENCOUNTER 2023-07-16 13:39 | Outpatient (CLI) | payer MEDICARE, MEDICAID, SELFPAY ==
[2023-07-16 13:42] LABS: Abs Immature Grans 0.03 10^3/uL (0.0-0.06); Absolute Basophil Count 0.04 10^3/uL (0.0-0.2); Absolute Eosinophil Count 0.09 10^3/uL (0.0-0.7); Absolute Lymphocyte Count 1.96 10^3/uL (1.2-3.4); Absolute Monocyte Count 0.56 10^3/uL (0.1-0.8); Absolute Neutrophil Count 3.11 10^3/uL (1.2-6.7); Basophils % 0.7; Eosinophils % 1.6; HGB 16.1 g/dL (13.5-17.5); Immature Grans % 0.5; Lymphocytes % 33.9; MCHC 33.5 % (32.0-36.0); MCV 93 fL (80-95); MPV 10.9 fL (8.0-11.0); Monocytes % 9.7; Neutrophils % 53.6; Platelet Count 152 10^3/uL (130-400); RBC 5.19 10^6/uL (4.36-5.78); RDW 12.9 % (11.8-14.1); RDW-SD 43.6 fL; WBC 5.79 10^3/uL (4.4-10.8)
== END 2023-07-16 13:40 | disposition home or self-care (01) ==
LOC: LBO 13:48
PROVIDERS: PCP Nurse Practitioner Family; Visit Provider Registered Nurse
DX: F32.9 Major depressive disorder, single episode, unspecified (principal)
CPT/HCPCS: 36415; 85025

== ENCOUNTER 2023-08-13 14:37 | Outpatient (CLI) | payer MEDICARE, MEDICAID, SELFPAY ==
[2023-08-13 14:22] LABS: Abs Immature Grans 0.09 10^3/uL (0.0-0.06); Absolute Basophil Count 0.06 10^3/uL (0.0-0.2); Absolute Eosinophil Count 0.14 10^3/uL (0.0-0.7); Absolute Lymphocyte Count 2.49 10^3/uL (1.2-3.4); Absolute Monocyte Count 0.94 10^3/uL (0.1-0.8); Absolute Neutrophil Count 5.43 10^3/uL (1.2-6.7); Basophils % 0.7; Eosinophils % 1.5; HCT 44.3 % (40.0-50.0); HGB 15.3 g/dL (13.5-17.5); Lymphocytes % 27.2; MCH 31.6 pg (27.0-33.0); MCHC 34.5 % (32.0-36.0); MCV 92 fL (80-95); MPV 10.8 fL (8.0-11.0); Monocytes % 10.3; Neutrophils % 59.3; Platelet Count 194 10^3/uL (130-400); RBC 4.84 10^6/uL (4.36-5.78); RDW 12.4 % (11.8-14.1); WBC 9.15 10^3/uL (4.4-10.8)
== END 2023-08-13 14:38 | disposition home or self-care (01) ==
LOC: LBO 14:38
PROVIDERS: PCP Nurse Practitioner Family; Visit Provider Registered Nurse
DX: F32.9 Major depressive disorder, single episode, unspecified (principal)
CPT/HCPCS: 36415; 85025

== ENCOUNTER 2023-09-14 13:08 | Outpatient (CLI) | payer MEDICARE, MEDICAID, SELFPAY ==
[2023-09-14 13:06] LABS: Abs Immature Grans 0.06 10^3/uL (0.0-0.06); Absolute Basophil Count 0.04 10^3/uL (0.0-0.2); Absolute Eosinophil Count 0.15 10^3/uL (0.0-0.7); Absolute Lymphocyte Count 2.46 10^3/uL (1.2-3.4); Absolute Monocyte Count 0.57 10^3/uL (0.1-0.8); Absolute Neutrophil Count 3.24 10^3/uL (1.2-6.7); Basophils % 0.6; Eosinophils % 2.3; HCT 47.6 % (40.0-50.0); HGB 15.9 g/dL (13.5-17.5); Immature Grans % 0.9; Lymphocytes % 37.7; MCH 31.2 pg (27.0-33.0); MCHC 33.4 % (32.0-36.0); MCV 94 fL (80-95); MPV 10.6 fL (8.0-11.0); Monocytes % 8.7; Neutrophils % 49.8; Platelet Count 193 10^3/uL (130-400); RBC 5.09 10^6/uL (4.36-5.78); RDW 12.5 % (11.8-14.1); RDW-SD 43.5 fL; WBC 6.52 10^3/uL (4.4-10.8)
== END 2023-09-14 13:09 | disposition home or self-care (01) ==
LOC: LBO 13:09
PROVIDERS: PCP Nurse Practitioner Family; Visit Provider Registered Nurse
DX: F32.9 Major depressive disorder, single episode, unspecified (principal)
CPT/HCPCS: 36415; 85025

== ENCOUNTER 2023-10-08 13:12 | Outpatient (CLI) | payer MEDICARE, MEDICAID, SELFPAY ==
[2023-10-08 13:07] LABS: Abs Immature Grans 0.05 10^3/uL (0.0-0.06); Absolute Basophil Count 0.03 10^3/uL (0.0-0.2); Absolute Eosinophil Count 0.11 10^3/uL (0.0-0.7); Absolute Lymphocyte Count 2.12 10^3/uL (1.2-3.4); Absolute Monocyte Count 0.52 10^3/uL (0.1-0.8); Absolute Neutrophil Count 2.75 10^3/uL (1.2-6.7); Basophils % 0.5 %; HCT 43.5 % (40.0-50.0); HGB 14.9 g/dL (13.5-17.5); Immature Grans % 0.9 %; MCHC 34.3 % (32.0-36.0); MCV 91 fL (80-95); MPV 10.8 fL (8.0-11.0); Monocytes % 9.3 %; Neutrophils % 49.3 %; Platelet Count 170 10^3/uL (130-400); RDW 12.4 % (11.8-14.1); RDW-SD 40.8 fL; WBC 5.58 10^3/uL (4.4-10.8)
== END 2023-10-08 13:13 | disposition home or self-care (01) ==
LOC: LBO 13:13
PROVIDERS: PCP Nurse Practitioner Family; Visit Provider Registered Nurse
DX: F32.9 Major depressive disorder, single episode, unspecified (principal)
CPT/HCPCS: 36415; 85025

== ENCOUNTER 2023-11-05 20:14 | Outpatient (CLI) | payer MEDICARE, MEDICAID, SELFPAY ==
[2023-11-05 14:07] LABS: Abs Immature Grans 0.08 10^3/uL (0.0-0.06); Absolute Basophil Count 0.05 10^3/uL (0.0-0.2); Absolute Eosinophil Count 0.08 10^3/uL (0.0-0.7); Absolute Lymphocyte Count 2.14 10^3/uL (1.2-3.4); Absolute Monocyte Count 0.61 10^3/uL (0.1-0.8); Absolute Neutrophil Count 2.82 10^3/uL (1.2-6.7); Basophils % 0.9 %; Eosinophils % 1.4 %; HCT 44.9 % (40.0-50.0); HGB 15.2 g/dL (13.5-17.5); Immature Grans % 1.4 %; MCH 31.1 pg (27.0-33.0); MCHC 33.9 % (32.0-36.0); MCV 92 fL (80-95); MPV 11.1 fL (8.0-11.0); Monocytes % 10.6 %; Neutrophils % 48.7 %; Platelet Count 159 10^3/uL (130-400); RBC 4.89 10^6/uL (4.36-5.78); RDW 12.5 % (11.8-14.1); RDW-SD 41.6 fL; WBC 5.78 10^3/uL (4.4-10.8)
== END 2023-11-05 20:15 | disposition home or self-care (01) ==
LOC: LBO 20:15
PROVIDERS: PCP Nurse Practitioner Family; Visit Provider Registered Nurse
DX: F32.9 Major depressive disorder, single episode, unspecified (principal)
CPT/HCPCS: 36415; 85025

== ENCOUNTER 2023-12-07 11:55 | Outpatient (CLI) | payer MEDICARE, MEDICAID, SELFPAY ==
[2023-12-07 10:31] LABS: Abs Immature Grans 0.07 10^3/uL (0.0-0.06); Absolute Basophil Count 0.05 10^3/uL (0.0-0.2); Absolute Eosinophil Count 0.09 10^3/uL (0.0-0.7); Absolute Lymphocyte Count 2.14 10^3/uL (1.2-3.4); Absolute Monocyte Count 0.94 10^3/uL (0.1-0.8); Absolute Neutrophil Count 5.97 10^3/uL (1.2-6.7); Basophils % 0.5 %; HCT 41.6 % (40.0-50.0); HGB 14.1 g/dL (13.5-17.5); Immature Grans % 0.8 %; Lymphocytes % 23.1 %; MCH 31.2 pg (27.0-33.0); MCHC 33.9 % (32.0-36.0); MCV 92 fL (80-95); MPV 9.4 fL (8.0-11.0); Monocytes % 10.2 %; Neutrophils % 64.4 %; Platelet Count 213 10^3/uL (130-400); RBC 4.52 10^6/uL (4.36-5.78); RDW 12.7 % (11.8-14.1); RDW-SD 42.7 fL; WBC 9.26 10^3/uL (4.4-10.8)
== END 2023-12-07 11:56 | disposition home or self-care (01) ==
LOC: LBO 11:56
PROVIDERS: PCP Nurse Practitioner Family; Visit Provider Registered Nurse
DX: F32.9 Major depressive disorder, single episode, unspecified (principal)
CPT/HCPCS: 36415; 85025

== ENCOUNTER 2023-12-31 16:18 | Outpatient (CLI) | payer MEDICARE, MEDICAID, SELFPAY ==
[2023-12-31 14:27] LABS: Abs Immature Grans 0.04 10^3/uL (0.0-0.06); Absolute Basophil Count 0.06 10^3/uL (0.0-0.2); Absolute Eosinophil Count 0.11 10^3/uL (0.0-0.7); Absolute Lymphocyte Count 2.09 10^3/uL (1.2-3.4); Absolute Monocyte Count 0.73 10^3/uL (0.1-0.8); Absolute Neutrophil Count 3.59 10^3/uL (1.2-6.7); Basophils % 0.9 %; Eosinophils % 1.7 %; HCT 44.3 % (40.0-50.0); HGB 14.9 g/dL (13.5-17.5); Immature Grans % 0.6 %; Lymphocytes % 31.6 %; MCH 30.7 pg (27.0-33.0); MCHC 33.6 % (32.0-36.0); MCV 91 fL (80-95); MPV 10.8 fL (8.0-11.0); Neutrophils % 54.2 %; Platelet Count 169 10^3/uL (130-400); RBC 4.85 10^6/uL (4.36-5.78); RDW 12.6 % (11.8-14.1); RDW-SD 41.9 fL; WBC 6.62 10^3/uL (4.4-10.8)
== END 2023-12-31 16:19 | disposition home or self-care (01) ==
LOC: LBO 16:18
PROVIDERS: PCP Nurse Practitioner Family; Visit Provider Nurse Practitioner Psychiatric/Mental Health
DX: Z79.899 Other long term (current) drug therapy (principal); F31.76 Bipolar disorder, in full remission, most recent episode depressed
CPT/HCPCS: 36415; 85025

== ENCOUNTER 2024-01-28 15:22 | Outpatient (CLI) | payer MEDICARE, MEDICAID, SELFPAY ==
[2024-01-28 13:09] LABS: Abs Immature Grans 0.07 10^3/uL (0.0-0.06); Absolute Basophil Count 0.04 10^3/uL (0.0-0.2); Absolute Eosinophil Count 0.08 10^3/uL (0.0-0.7); Absolute Lymphocyte Count 2.19 10^3/uL (1.2-3.4); Absolute Monocyte Count 0.98 10^3/uL (0.1-0.8); Absolute Neutrophil Count 4.43 10^3/uL (1.2-6.7); Basophils % 0.5 %; HCT 42.5 % (40.0-50.0); HGB 14.6 g/dL (13.5-17.5); Immature Grans % 0.9 %; Lymphocytes % 28.1 %; MCH 31.3 pg (27.0-33.0); MCHC 34.4 % (32.0-36.0); MCV 91 fL (80-95); MPV 10.4 fL (8.0-11.0); Monocytes % 12.6 %; Neutrophils % 56.9 %; Platelet Count 193 10^3/uL (130-400); RBC 4.67 10^6/uL (4.36-5.78); WBC 7.79 10^3/uL (4.4-10.8)
== END 2024-01-28 15:23 | disposition home or self-care (01) ==
LOC: LBO 15:29
PROVIDERS: PCP Nurse Practitioner Family; Referring Provider Nurse Practitioner Psychiatric/Mental Health; Visit Provider Nurse Practitioner Psychiatric/Mental Health
DX: F31.76 Bipolar disorder, in full remission, most recent episode depressed (principal)
CPT/HCPCS: 36415; 85025

== ENCOUNTER 2024-02-24 10:43 | Outpatient (CLI) | payer MEDICARE, MEDICAID, SELFPAY ==
[2024-02-24 10:00] LABS: Abs Immature Grans 0.08 10^3/uL (0.0-0.06); Absolute Basophil Count 0.06 10^3/uL (0.0-0.2); Absolute Eosinophil Count 0.12 10^3/uL (0.0-0.7); Absolute Monocyte Count 0.77 10^3/uL (0.1-0.8); Basophils % 0.9 %; Eosinophils % 1.9 %; HCT 44.2 % (40.0-50.0); HGB 14.8 g/dL (13.5-17.5); Immature Grans % 1.2 %; Lymphocytes % 32.7 %; MCH 31.1 pg (27.0-33.0); MCHC 33.5 % (32.0-36.0); MCV 93 fL (80-95); MPV 10.3 fL (8.0-11.0); Neutrophils % 51.3 %; Platelet Count 167 10^3/uL (130-400); RBC 4.76 10^6/uL (4.36-5.78); RDW 12.8 % (11.8-14.1); RDW-SD 43.7 fL; WBC 6.43 10^3/uL (4.4-10.8)
== END 2024-02-24 10:44 | disposition home or self-care (01) ==
LOC: LBO 10:54
PROVIDERS: PCP Nurse Practitioner Family; Referring Provider Nurse Practitioner Psychiatric/Mental Health; Visit Provider Nurse Practitioner Psychiatric/Mental Health
DX: F31.76 Bipolar disorder, in full remission, most recent episode depressed (principal); Z79.899 Other long term (current) drug therapy
CPT/HCPCS: 36415; 85025

== ENCOUNTER 2024-03-28 14:39 | Outpatient (CLI) | payer MEDICARE, MEDICAID, SELFPAY ==
[2024-03-28 14:10] LABS: Abs Immature Grans 0.06 10^3/uL (0.0-0.06); Absolute Basophil Count 0.04 10^3/uL (0.0-0.2); Absolute Eosinophil Count 0.12 10^3/uL (0.0-0.7); Absolute Lymphocyte Count 2.19 10^3/uL (1.2-3.4); Absolute Monocyte Count 0.61 10^3/uL (0.1-0.8); Absolute Neutrophil Count 4.64 10^3/uL (1.2-6.7); Basophils % 0.5 %; Eosinophils % 1.6 %; HCT 45.3 % (40.0-50.0); HGB 15.4 g/dL (13.5-17.5); Immature Grans % 0.8 %; Lymphocytes % 28.6 %; MCV 91 fL (80-95); MPV 10.6 fL (8.0-11.0); Neutrophils % 60.5 %; Platelet Count 167 10^3/uL (130-400); RBC 4.96 10^6/uL (4.36-5.78); RDW 12.9 % (11.8-14.1); RDW-SD 42.5 fL; WBC 7.66 10^3/uL (4.4-10.8)
[2024-03-28 15:29] LABS: VALPROIC ACID 107.5 ug/mL
[2024-03-28 15:48] LABS: ALT 53 U/L (16-63); AST 37 U/L (15-37); Albumin 3.5 g/dL (3.4-5.0); Alkaline Phosphatase 84 U/L (46-116); Anion Gap 5.3 mmol/L (3-11); BUN 14 mg/dL (7-18); Bilirubin, Total 0.46 mg/dL (0.2-1.0); CO2 31.7 mmol/L (21.0-32.0); CREATININE 1.1 mg/dL (0.70-1.30); Calcium 9.4 mg/dL (8.5-10.1); Chloride 107 mmol/L (98-107); Estimated GFR 93.19 (mL/min/1.73m2); Glucose 85 mg/dL (74-106); Potassium 4.5 mmol/L (3.5-5.1); Sodium 144 mmol/L (136-145)
== END 2024-03-28 14:40 | disposition home or self-care (01) ==
LOC: LBO 14:39
PROVIDERS: Nurse Practitioner Family; PCP Nurse Practitioner Family; Visit Provider Nurse Practitioner Psychiatric/Mental Health
DX: Z79.899 Other long term (current) drug therapy (principal); I10 Essential (primary) hypertension; F31.76 Bipolar disorder, in full remission, most recent episode depressed; F91.3 Oppositional defiant disorder
CPT/HCPCS: 36415; 80053; 80164; 85025

== ENCOUNTER 2024-04-25 13:56 | Outpatient (CLI) | payer MEDICARE, MEDICAID, SELFPAY ==
[2024-04-25 14:39] LABS: Abs Immature Grans 0.07 10^3/uL (0.0-0.06); Absolute Basophil Count 0.05 10^3/uL (0.0-0.2); Absolute Eosinophil Count 0.08 10^3/uL (0.0-0.7); Absolute Lymphocyte Count 2.19 10^3/uL (1.2-3.4); Absolute Monocyte Count 0.72 10^3/uL (0.1-0.8); Absolute Neutrophil Count 4.23 10^3/uL (1.2-6.7); Basophils % 0.7 %; Eosinophils % 1.1 %; HCT 47.2 % (40.0-50.0); HGB 15.8 g/dL (13.5-17.5); Lymphocytes % 29.8 %; MCH 30.9 pg (27.0-33.0); MCHC 33.5 % (32.0-36.0); MCV 92 fL (80-95); MPV 10.6 fL (8.0-11.0); Monocytes % 9.8 %; Neutrophils % 57.6 %; Platelet Count 161 10^3/uL (130-400); RBC 5.11 10^6/uL (4.36-5.78); RDW 12.8 % (11.8-14.1); RDW-SD 43.5 fL; WBC 7.34 10^3/uL (4.4-10.8)
[2024-04-25 16:48] LABS: ALT 56 U/L (16-63); AST 34 U/L (15-37); Albumin 3.6 g/dL (3.4-5.0); Alkaline Phosphatase 88 U/L (46-116); Anion Gap 8.8 mmol/L (3-11); BUN 18 mg/dL (7-18); Bilirubin, Total 0.58 mg/dL (0.2-1.0); CO2 30.2 mmol/L (21.0-32.0); Calcium 9.5 mg/dL (8.5-10.1); Chloride 104 mmol/L (98-107); Estimated GFR 103.84 (mL/min/1.73m2); Glucose 80 mg/dL (74-106); Sodium 143 mmol/L (136-145); Total Protein 7.3 g/dL (6.4-8.2)
== END 2024-04-25 13:57 | disposition home or self-care (01) ==
LOC: LBO 13:56
PROVIDERS: Nurse Practitioner Psychiatric/Mental Health; PCP Nurse Practitioner Family; Visit Provider Nurse Practitioner Family
DX: F31.76 Bipolar disorder, in full remission, most recent episode depressed (principal)
CPT/HCPCS: 36415; 80053; 85025

== ENCOUNTER 2024-05-24 14:15 | Outpatient (CLI) | payer MEDICARE, MEDICAID, SELFPAY ==
[2024-05-24 11:01] LABS: Abs Immature Grans 0.04 10^3/uL (0.0-0.06); Absolute Basophil Count 0.04 10^3/uL (0.0-0.2); Absolute Lymphocyte Count 1.83 10^3/uL (1.2-3.4); Absolute Monocyte Count 0.73 10^3/uL (0.1-0.8); Absolute Neutrophil Count 3.13 10^3/uL (1.2-6.7); Basophils % 0.7 %; Eosinophils % 1.7 %; HCT 44.3 % (40.0-50.0); HGB 15.2 g/dL (13.5-17.5); Immature Grans % 0.7 %; Lymphocytes % 31.2 %; MCH 31.2 pg (27.0-33.0); MCHC 34.3 % (32.0-36.0); MCV 91 fL (80-95); MPV 10.9 fL (8.0-11.0); Monocytes % 12.4 %; Neutrophils % 53.3 %; Platelet Count 156 10^3/uL (130-400); RBC 4.87 10^6/uL (4.36-5.78); RDW 12.9 % (11.8-14.1); RDW-SD 42.8 fL; WBC 5.87 10^3/uL (4.4-10.8)
== END 2024-05-24 14:16 | disposition home or self-care (01) ==
LOC: LBO 14:17
PROVIDERS: PCP Nurse Practitioner Family; Visit Provider Nurse Practitioner Psychiatric/Mental Health
DX: Z79.899 Other long term (current) drug therapy (principal); F31.76 Bipolar disorder, in full remission, most recent episode depressed; F91.3 Oppositional defiant disorder
CPT/HCPCS: 36415; 85025

== ENCOUNTER 2024-06-21 11:27 | Outpatient (CLI) | payer MEDICARE, MEDICAID, SELFPAY ==
[2024-06-21 11:18] LABS: Abs Immature Grans 0.13 10^3/uL (0.0-0.06); Absolute Basophil Count 0.05 10^3/uL (0.0-0.2); Absolute Eosinophil Count 0.07 10^3/uL (0.0-0.7); Absolute Lymphocyte Count 2.01 10^3/uL (1.2-3.4); Absolute Monocyte Count 0.77 10^3/uL (0.1-0.8); Absolute Neutrophil Count 4.22 10^3/uL (1.2-6.7); Basophils % 0.7 %; HCT 45.4 % (40.0-50.0); HGB 15.4 g/dL (13.5-17.5); Immature Grans % 1.8 %; Lymphocytes % 27.7 %; MCH 31.2 pg (27.0-33.0); MCHC 33.9 % (32.0-36.0); MCV 92 fL (80-95); MPV 11.4 fL (8.0-11.0); Monocytes % 10.6 %; Neutrophils % 58.2 %; Platelet Count 149 10^3/uL (130-400); RBC 4.94 10^6/uL (4.36-5.78); RDW 12.8 % (11.8-14.1); RDW-SD 42.8 fL; WBC 7.25 10^3/uL (4.4-10.8)
== END 2024-06-21 11:28 | disposition home or self-care (01) ==
LOC: LBO 11:28
PROVIDERS: Visit Provider Nurse Practitioner Psychiatric/Mental Health
DX: Z79.899 Other long term (current) drug therapy (principal); F31.76 Bipolar disorder, in full remission, most recent episode depressed; F91.3 Oppositional defiant disorder
CPT/HCPCS: 36415; 85025

== ENCOUNTER 2024-07-14 12:33 | Outpatient (CLI) | payer MEDICARE, MEDICAID, SELFPAY ==
[2024-07-14 11:12] LABS: Abs Immature Grans 0.08 10^3/uL (0.0-0.06); Absolute Basophil Count 0.05 10^3/uL (0.0-0.2); Absolute Eosinophil Count 0.07 10^3/uL (0.0-0.7); Absolute Lymphocyte Count 2.05 10^3/uL (1.2-3.4); Absolute Neutrophil Count 4.24 10^3/uL (1.2-6.7); Basophils % 0.7 %; HCT 44.7 % (40.0-50.0); HGB 15.2 g/dL (13.5-17.5); Immature Grans % 1.1 %; Lymphocytes % 28.1 %; MCH 31.1 pg (27.0-33.0); MCV 92 fL (80-95); MPV 10.2 fL (8.0-11.0); Neutrophils % 58.1 %; Platelet Count 166 10^3/uL (130-400); RBC 4.88 10^6/uL (4.36-5.78); RDW 12.7 % (11.8-14.1); RDW-SD 42.9 fL; WBC 7.29 10^3/uL (4.4-10.8)
== END 2024-07-14 12:34 | disposition home or self-care (01) ==
LOC: LBO 12:36
PROVIDERS: Visit Provider Nurse Practitioner Psychiatric/Mental Health
DX: Z79.899 Other long term (current) drug therapy (principal); F31.76 Bipolar disorder, in full remission, most recent episode depressed; F91.3 Oppositional defiant disorder
CPT/HCPCS: 36415; 85025

== ENCOUNTER 2024-08-04 10:47 | Outpatient (CLI) | payer MEDICARE, MEDICAID, SELFPAY ==
[2024-08-04 11:23] LABS: Abs Immature Grans 0.06 10^3/uL (0.0-0.06); Absolute Basophil Count 0.05 10^3/uL (0.0-0.2); Absolute Eosinophil Count 0.09 10^3/uL (0.0-0.7); Absolute Lymphocyte Count 1.82 10^3/uL (1.2-3.4); Absolute Monocyte Count 0.69 10^3/uL (0.1-0.8); Absolute Neutrophil Count 2.77 10^3/uL (1.2-6.7); Basophils % 0.9 %; Eosinophils % 1.6 %; HGB 15.1 g/dL (13.5-17.5); Immature Grans % 1.1 %; Lymphocytes % 33.2 %; MCH 30.8 pg (27.0-33.0); MCHC 34.3 % (32.0-36.0); MCV 90 fL (80-95); MPV 11.3 fL (8.0-11.0); Monocytes % 12.6 %; Neutrophils % 50.6 %; Platelet Count 163 10^3/uL (130-400); RDW 12.5 % (11.8-14.1); RDW-SD 40.7 fL; WBC 5.48 10^3/uL (4.4-10.8)
== END 2024-08-04 10:48 | disposition home or self-care (01) ==
LOC: LBO 10:48
PROVIDERS: Visit Provider Nurse Practitioner Psychiatric/Mental Health
DX: Z79.899 Other long term (current) drug therapy (principal); F31.76 Bipolar disorder, in full remission, most recent episode depressed
CPT/HCPCS: 36415; 85025

== ENCOUNTER 2024-11-10 10:37 | Outpatient (CLI) | payer MEDICARE, MEDICAID, SELFPAY ==
[2024-11-10 09:39] LABS: Abs Immature Grans 0.04 10^3/uL (0.0-0.06); Absolute Basophil Count 0.03 10^3/uL (0.0-0.2); Absolute Eosinophil Count 0.04 10^3/uL (0.0-0.7); Absolute Lymphocyte Count 1.82 10^3/uL (1.2-3.4); Absolute Monocyte Count 0.69 10^3/uL (0.1-0.8); Absolute Neutrophil Count 2.75 10^3/uL (1.2-6.7); Basophils % 0.6 %; Eosinophils % 0.7 %; HCT 42.9 % (40.0-50.0); HGB 14.6 g/dL (13.5-17.5); Immature Grans % 0.7 %; Lymphocytes % 33.9 %; MCH 30.4 pg (27.0-33.0); MCV 89 fL (80-95); MPV 10.7 fL (8.0-11.0); Monocytes % 12.8 %; Neutrophils % 51.3 %; Platelet Count 167 10^3/uL (130-400); RBC 4.81 10^6/uL (4.36-5.78); RDW 12.6 % (11.8-14.1); RDW-SD 41.4 fL; WBC 5.37 10^3/uL (4.4-10.8)
== END 2024-11-10 10:38 | disposition home or self-care (01) ==
LOC: LBO 10:39
PROVIDERS: Visit Provider Nurse Practitioner Psychiatric/Mental Health
DX: Z79.899 Other long term (current) drug therapy (principal); F31.76 Bipolar disorder, in full remission, most recent episode depressed; F91.3 Oppositional defiant disorder
CPT/HCPCS: 36415; 85025

== ENCOUNTER 2025-01-19 14:49 | Outpatient (CLI) | payer MEDICARE, MEDICAID, SELFPAY ==
[2025-01-19 12:02] LABS: Abs Immature Grans 0.10 10^3/uL (0.0-0.06); HCT 42.8 % (40.0-50.0); HGB 14.5 g/dL (13.5-17.5); Immature Grans % 1.8 %; MCH 30.8 pg (27.0-33.0); MCHC 33.9 % (32.0-36.0); MCV 91 fL (80-95); MPV 11.4 fL (8.0-11.0); Platelet Count 147 10^3/uL (130-400); RBC 4.71 10^6/uL (4.36-5.78); RDW 12.9 % (11.8-14.1); RDW-SD 42.4 fL; WBC 5.44 10^3/uL (4.4-10.8)
== END 2025-01-19 14:50 | disposition home or self-care (01) ==
LOC: LBO 14:53
PROVIDERS: Visit Provider Nurse Practitioner Psychiatric/Mental Health
DX: Z79.899 Other long term (current) drug therapy (principal)
CPT/HCPCS: 36415; 85025

== ENCOUNTER 2025-03-14 10:41 | Outpatient (CLI) | payer MEDICARE, MEDICAID, SELFPAY ==
[2025-03-14 11:21] LABS: Abs Immature Grans 0.03 10^3/uL (0.0-0.06); HCT 43.3 % (40.0-50.0); HGB 15.0 g/dL (13.5-17.5); Immature Grans % 0.5 %; MCH 30.8 pg (27.0-33.0); MCHC 34.6 % (32.0-36.0); MCV 89 fL (80-95); MPV 10.6 fL (8.0-11.0); Platelet Count 165 10^3/uL (130-400); RBC 4.87 10^6/uL (4.36-5.78); RDW 12.5 % (11.8-14.1); RDW-SD 40.8 fL; WBC 6.30 10^3/uL (4.4-10.8)
[2025-03-14 11:45] LABS: Hemoglobin A1C 5.3 % (<5.7)
[2025-03-14 12:27] LABS: Calculated LDL 78 mg/dL (<100); Cholesterol 188 mg/dL (<200); HDL Cholesterol 30 mg/dL (>or=40); Triglyceride 400 mg/dL (<150)
== END 2025-03-14 10:42 | disposition home or self-care (01) ==
LOC: LBO 10:42
PROVIDERS: Visit Provider Nurse Practitioner Psychiatric/Mental Health
DX: Z79.899 Other long term (current) drug therapy (principal)
CPT/HCPCS: 36415; 80061; 80164; 83036; 85025

== ENCOUNTER 2025-03-27 19:41 | Outpatient (REF) | payer MEDICARE, MEDICAID, SELFPAY ==
[2025-03-29 11:46] LABS: Chlamydia Result Negative (Negative); GC Result Negative (Negative)
== END 2025-03-27 19:42 | disposition home or self-care (01) ==
LOC: NCHCN 19:41
PROVIDERS: Visit Provider Nurse Practitioner Family
DX: Z11.3 Encounter for screening for infections with a predominantly sexual mode of transmission (principal)
CPT/HCPCS: 87491; 87591

== ENCOUNTER 2025-04-11 13:24 | Outpatient (CLI) | payer MEDICARE, MEDICAID, SELFPAY ==
[2025-04-11 18:22] LABS: ALT 56 U/L (10-49); AST 42 U/L (<34); Albumin 4.3 g/dL (3.4-5.0); Alkaline Phosphatase 78 U/L (46-116); Anion Gap 10.7 mmol/L (3-11); BUN 12 mg/dL (9-23); Bilirubin, Total 0.40 mg/dL (0.2-1.2); CO2 25.3 mmol/L (20.0-31.0); Calcium 9.3 mg/dL (8.3-10.6); Chloride 103 mmol/L (98-107); Glucose 89 mg/dL (74-106); Potassium 4.2 mmol/L (3.5-5.1); Sodium 139 mmol/L (136-145); Total Protein 6.8 g/dL (5.7-8.2)
[2025-04-12 00:53] LABS: HIV-1/2 Ag & Ab Screen Negative (Negative)
[2025-04-12 00:57] LABS: Hepatitis C Ab w Rflx HCV PCR Negative (Negative)
[2025-04-12 10:50] LABS: Syphilis Serology (RPR) Negative (Negative)
== END 2025-04-11 13:25 | disposition home or self-care (01) ==
LOC: LBO 13:25
PROVIDERS: Visit Provider Nurse Practitioner Family
DX: Z11.3 Encounter for screening for infections with a predominantly sexual mode of transmission (principal); Z00.00 Encounter for general adult medical examination without abnormal findings
CPT/HCPCS: 36415; 80053; 86803; 87389; 86592